=== PATIENT | male | born 1945 | race Caucasian/White ===

== ENCOUNTER 2017-09-11 18:46 | Inpatient (IN) ==
[2017-09-11] MEDS ORDERED: ALBUTEROL/IPRATROPIUM 3 ML NEB RESP TX STA (19:05)
[2017-09-11 20:08] LABS: Basophils % 0.4 % (0.0-0.8); Eosinophils # 0.2 10*3/uL (0.0-0.87); Eosinophils % 2.3 % (0.00-10.9); Hematocrit 29.7 VOL% (42.0-52.0); Hemoglobin 9.6 GM/DL (14.0-18.0); Immature Granulocytes % 0.6 %; Immature Granulocytes Absolute 0.05 #; Lymphocytes # 0.7 10*3/uL (1.4-4.0); Mean Corpuscular HGB Conc 32.3 GM/DL (32-36); Mean Corpuscular Hemoglobin 35 PG (27-34); Mean Corpuscular Volume 106.8 FL (87-102); Mean Platelet Volume 9.9 FL (9.6-12.0); Monocytes # 0.7 10*3/uL (0.11-0.8); Monocytes % 8.1 % (1.7-12.7); Neutrophils # 6.7 10*3/uL (1.4-7.4); Neutrophils % 80.6 % (38.7-73.9); Platelet Count 130 T/CUMM (130-400); Red Blood Count 2.78 MC/CUMM (3.8-5.5); Red Cell Distribution Width 15.8 % (9.3-17.3); White Blood Count 8.3 T/CUMM (4-12)
[2017-09-11 20:17] LABS: INR 1.1; PT Patient Result 11.3 SECS
[2017-09-11 20:32] LABS: Alanine Aminotransferase 25 U/L (16-61); Albumin 3.8 G/DL (3.4-5.0); Alkaline Phosphatase 98 U/L (45-117); Aspartate Amino Transferase 30 U/L (0-37); Blood Urea Nitrogen 49 MG/DL (7-18); Calcium 8.7 MG/DL (8.5-10.1); Glucose 110 MG/DL (74-106); Osmolality,Calculated 281.2 MOS/KG (273-304); Potassium 3.4 MMOL/L (3.5-5.1); Sodium 134 MMOL/L (136-145); Total Protein 7.5 G/DL (6.4-8.3)
[2017-09-11 20:33] LABS: Troponin I Only 0.079 NG/ML (0.00-0.045)
[2017-09-11] MEDS ORDERED: ONDANSETRON 4 MG/2 ML VIAL IV PRN (22:35)
[2017-09-11] MEDS ORDERED: ALBUTEROL/IPRATROPIUM 3 ML NEB RESP TX PRN (22:35)
[2017-09-11] MEDS: ATORVASTATIN 20 MG TABLET PO SCH (23:29)
[2017-09-11] MEDS: SOTALOL 80 MG TABLET PO SCH (23:29)
[2017-09-12 04:46] LABS: Troponin I Only 0.128 NG/ML (0.00-0.045)
[2017-09-12] MEDS: POTASSIUM CHLORIDE 10 MEQ TABLET PO SCH (08:47)
[2017-09-12] MEDS: GABAPENTIN 300 MG CAPSULE PO SCH ×3 (08:48→21:20)
[2017-09-12] MEDS: PANTOPRAZOLE 40 MG TABLET PO SCH (08:48)
[2017-09-12] MEDS: FUROSEMIDE 40 MG TABLET PO SCH (08:48)
[2017-09-12] MEDS: SOTALOL 80 MG TABLET PO SCH ×2 (08:50→21:19)
[2017-09-12] MEDS: ATORVASTATIN 20 MG TABLET PO SCH (21:20)
[2017-09-13 05:15] LABS: Basophils % 0.4 % (0.0-0.8); Eosinophils # 0.4 10*3/uL (0.0-0.87); Eosinophils % 5.2 % (0.00-10.9); Hematocrit 26.6 VOL% (42.0-52.0); Hemoglobin 8.7 GM/DL (14.0-18.0); Immature Granulocytes % 0.3 %; Immature Granulocytes Absolute 0.02 #; Lymphocytes # 0.8 10*3/uL (1.4-4.0); Mean Corpuscular HGB Conc 32.7 GM/DL (32-36); Mean Corpuscular Hemoglobin 34 PG (27-34); Mean Corpuscular Volume 104.7 FL (87-102); Mean Platelet Volume 9.3 FL (9.6-12.0); Monocytes # 0.8 10*3/uL (0.11-0.8); Monocytes % 11.7 % (1.7-12.7); Neutrophils # 4.9 10*3/uL (1.4-7.4); Neutrophils % 70.4 % (38.7-73.9); Platelet Count 128 T/CUMM (130-400); Red Blood Count 2.54 MC/CUMM (3.8-5.5); Red Cell Distribution Width 15.8 % (9.3-17.3)
[2017-09-13 05:50] LABS: Calcium 8.7 MG/DL (8.5-10.1); Osmolality,Calculated 276.4 MOS/KG (273-304); Potassium 3.2 MMOL/L (3.5-5.1)
[2017-09-13] MEDS: SOTALOL 80 MG TABLET PO SCH (10:33)
[2017-09-13] MEDS: FUROSEMIDE 40 MG TABLET PO SCH (10:33)
[2017-09-13] MEDS: POTASSIUM CHLORIDE 10 MEQ TABLET PO SCH (10:33)
[2017-09-13] MEDS: metOLazone 2.5 MG TABLET PO SCH (10:34)
[2017-09-13] MEDS: PANTOPRAZOLE 40 MG TABLET PO SCH (10:34)
[2017-09-13] MEDS: GABAPENTIN 300 MG CAPSULE PO SCH ×3 (10:34→21:33)
[2017-09-13] MEDS: POTASSIUM CHLORIDE 20 MEQ TABLET PO PRN ×4 (10:38→16:44)
[2017-09-13] MEDS ORDERED: FUROSEMIDE 40 MG/4 ML VIAL IV ONE (16:15)
[2017-09-13] MEDS: ASPIRIN EC 81 MG TABLET PO SCH (16:45)
[2017-09-13 18:18] LABS: Apearance,Urine CLEAR (Clear); Bilirubin,Urine Negative (Negative); Blood, Urine Negative (Negative); Glucose,Urine (UA) Negative (Negative); Ketones,Urine Negative (Negative); Nitrite,Urine Negative (Negative); Protein,Urine Negative; Urine Color Yellow (Yellow); Urine Specific Gravity 1.006 (1.001-1.035); Urine Urobilinogen < 2.0 EU/DL (0.2-1.0); WBC,Urine <1 /HPF (0-6)
[2017-09-13] MEDS: ATORVASTATIN 20 MG TABLET PO SCH (21:32)
[2017-09-14 04:09] LABS: Basophils % 0.6 % (0.0-0.8); Eosinophils # 0.3 10*3/uL (0.0-0.87); Eosinophils % 4.6 % (0.00-10.9); Hematocrit 26.8 VOL% (42.0-52.0); Immature Granulocytes % 0.2 %; Immature Granulocytes Absolute 0.01 #; Lymphocytes # 0.7 10*3/uL (1.4-4.0); Lymphocytes % 11.3 % (21.2-54.2); Mean Corpuscular HGB Conc 33.6 GM/DL (32-36); Mean Corpuscular Hemoglobin 35 PG (27-34); Mean Corpuscular Volume 103.9 FL (87-102); Mean Platelet Volume 9.3 FL (9.6-12.0); Monocytes # 0.8 10*3/uL (0.11-0.8); Monocytes % 11.6 % (1.7-12.7); Neutrophils # 4.7 10*3/uL (1.4-7.4); Neutrophils % 71.7 % (38.7-73.9); Platelet Count 133 T/CUMM (130-400); Red Blood Count 2.58 MC/CUMM (3.8-5.5); Red Cell Distribution Width 15.6 % (9.3-17.3); White Blood Count 6.6 T/CUMM (4-12)
[2017-09-14 04:45] LABS: Calcium 8.8 MG/DL (8.5-10.1); Magnesium 2.3 MG/DL (1.8-2.4); Osmolality,Calculated 280.1 MOS/KG (273-304); Potassium 3.5 MMOL/L (3.5-5.1); Risk Ratio 3.38; VLDL CHOLESTEROL 20.4 MG/DL
[2017-09-14] MEDS: NEBIVOLOL 5 MG TABLET PO SCH (09:46)
[2017-09-14] MEDS: GABAPENTIN 300 MG CAPSULE PO SCH ×3 (09:46→21:27)
[2017-09-14] MEDS: FUROSEMIDE 40 MG TABLET PO SCH (09:46)
[2017-09-14] MEDS: PANTOPRAZOLE 40 MG TABLET PO SCH (09:47)
[2017-09-14] MEDS: POTASSIUM CHLORIDE 20 MEQ TABLET PO PRN ×2 (09:47→11:54)
[2017-09-14] MEDS: POTASSIUM CHLORIDE 10 MEQ TABLET PO SCH (09:47)
[2017-09-14] MEDS: metOLazone 2.5 MG TABLET PO SCH (09:47)
[2017-09-14] MEDS: ASPIRIN EC 81 MG TABLET PO SCH (09:47)
[2017-09-14] MEDS ORDERED: BISACODYL 5 MG TABLET PO ONE (11:34)
[2017-09-14] MEDS: FUROSEMIDE 40 MG/4 ML VIAL IV SCH (16:08)
[2017-09-14] MEDS: ATORVASTATIN 20 MG TABLET PO SCH (21:26)
[2017-09-15 05:02] LABS: Basophils % 0.5 % (0.0-0.8); Eosinophils # 0.3 10*3/uL (0.0-0.87); Eosinophils % 5.5 % (0.00-10.9); Hematocrit 26.5 VOL% (42.0-52.0); Hemoglobin 8.7 GM/DL (14.0-18.0); Immature Granulocytes % 0.7 %; Immature Granulocytes Absolute 0.04 #; Lymphocytes # 0.8 10*3/uL (1.4-4.0); Lymphocytes % 12.8 % (21.2-54.2); Mean Corpuscular HGB Conc 32.8 GM/DL (32-36); Mean Corpuscular Hemoglobin 34 PG (27-34); Mean Corpuscular Volume 103.5 FL (87-102); Mean Platelet Volume 9.7 FL (9.6-12.0); Monocytes # 0.7 10*3/uL (0.11-0.8); Monocytes % 11.9 % (1.7-12.7); Neutrophils # 4.2 10*3/uL (1.4-7.4); Neutrophils % 68.6 % (38.7-73.9); Platelet Count 128 T/CUMM (130-400); Red Blood Count 2.56 MC/CUMM (3.8-5.5); Red Cell Distribution Width 15.5 % (9.3-17.3); White Blood Count 6.2 T/CUMM (4-12)
[2017-09-15 05:31] LABS: Calcium 8.7 MG/DL (8.5-10.1); Magnesium 2.1 MG/DL (1.8-2.4); Potassium 3.5 MMOL/L (3.5-5.1)
[2017-09-15] MEDS: metOLazone 2.5 MG TABLET PO SCH (08:35)
[2017-09-15] MEDS: GABAPENTIN 300 MG CAPSULE PO SCH ×3 (08:35→21:51)
[2017-09-15] MEDS: FUROSEMIDE 40 MG/4 ML VIAL IV SCH (08:36)
[2017-09-15] MEDS: POTASSIUM CHLORIDE 10 MEQ TABLET PO SCH (08:36)
[2017-09-15] MEDS: ASPIRIN EC 81 MG TABLET PO SCH (08:36)
[2017-09-15] MEDS: PANTOPRAZOLE 40 MG TABLET PO SCH (08:36)
[2017-09-15] MEDS: NEBIVOLOL 5 MG TABLET PO SCH (08:36)
[2017-09-15] MEDS: ATORVASTATIN 20 MG TABLET PO SCH (21:51)
[2017-09-16 05:48] LABS: Basophils % 0.5 % (0.0-0.8); Eosinophils # 0.4 10*3/uL (0.0-0.87); Eosinophils % 5.4 % (0.00-10.9); Hematocrit 27.4 VOL% (42.0-52.0); Hemoglobin 9.1 GM/DL (14.0-18.0); Immature Granulocytes % 0.5 %; Immature Granulocytes Absolute 0.03 #; Lymphocytes # 0.8 10*3/uL (1.4-4.0); Lymphocytes % 12.6 % (21.2-54.2); Mean Corpuscular HGB Conc 33.2 GM/DL (32-36); Mean Corpuscular Hemoglobin 35 PG (27-34); Mean Corpuscular Volume 103.8 FL (87-102); Mean Platelet Volume 9.7 FL (9.6-12.0); Monocytes # 0.8 10*3/uL (0.11-0.8); Monocytes % 11.9 % (1.7-12.7); Neutrophils # 4.6 10*3/uL (1.4-7.4); Neutrophils % 69.1 % (38.7-73.9); Platelet Count 134 T/CUMM (130-400); Red Blood Count 2.64 MC/CUMM (3.8-5.5); Red Cell Distribution Width 15.2 % (9.3-17.3); White Blood Count 6.7 T/CUMM (4-12)
[2017-09-16 06:18] LABS: Calcium 8.6 MG/DL (8.5-10.1); Magnesium 2.2 MG/DL (1.8-2.4); Potassium 3.6 MMOL/L (3.5-5.1)
[2017-09-16 06:19] LABS: Potassium 3.6 MMOL/L (3.5-5.1)
[2017-09-16] MEDS: NEBIVOLOL 5 MG TABLET PO SCH (08:29)
[2017-09-16] MEDS: PANTOPRAZOLE 40 MG TABLET PO SCH (08:29)
[2017-09-16] MEDS: POTASSIUM CHLORIDE 10 MEQ TABLET PO SCH (08:29)
[2017-09-16] MEDS: FUROSEMIDE 40 MG/4 ML VIAL IV SCH (08:29)
[2017-09-16] MEDS: ASPIRIN EC 81 MG TABLET PO SCH (08:29)
[2017-09-16] MEDS: GABAPENTIN 300 MG CAPSULE PO SCH (08:29)
[2017-09-16 12:25] VITALS: BP 121/72
== END 2017-09-16 14:30 | disposition home or self-care (01) | DRG 291 ==
LOC: EDBD → EDUNIT# → N.ED 18:46 → N.EDINP 20:55 → N.TELES 21:56
PROVIDERS: ADMIT Family Medicine; ATTEND Family Medicine

== ENCOUNTER 2017-10-22 15:46 | Inpatient (IN) ==
[2017-10-22 17:29] LABS: Basophils % 0.3 % (0.0-0.8); Eosinophils # 0.3 10*3/uL (0.0-0.87); Eosinophils % 3.8 % (0.00-10.9); Hematocrit 30.8 VOL% (42.0-52.0); Hemoglobin 9.9 GM/DL (14.0-18.0); Immature Granulocytes % 0.4 %; Immature Granulocytes Absolute 0.03 #; Lymphocytes # 0.7 10*3/uL (1.4-4.0); Lymphocytes % 9.2 % (21.2-54.2); Mean Corpuscular HGB Conc 32.1 GM/DL (32-36); Mean Corpuscular Hemoglobin 35 PG (27-34); Mean Corpuscular Volume 108.8 FL (87-102); Mean Platelet Volume 10.3 FL (9.6-12.0); Monocytes # 0.9 10*3/uL (0.11-0.8); Monocytes % 10.8 % (1.7-12.7); Neutrophils % 75.5 % (38.7-73.9); Platelet Count 108 T/CUMM (130-400); Red Blood Count 2.83 MC/CUMM (3.8-5.5); Red Cell Distribution Width 17.2 % (9.3-17.3); White Blood Count 7.9 T/CUMM (4-12)
[2017-10-22 17:39] LABS: INR 1.1; PT Patient Result 11.4 SECS
[2017-10-22 17:59] LABS: Apearance,Urine Slightly Hazy (Clear); Bacteria,Urine Occasional /HPF (Few); Bilirubin,Urine Negative (Negative); Blood, Urine Negative (Negative); Glucose,Urine (UA) Negative (Negative); Hyaline Casts,Urine 4 /LPF (0-3); Ketones,Urine Negative (Negative); Mucus,Urine Occasional /LPF (Occasional); Nitrite,Urine Negative (Negative); Protein,Urine Negative; RBC,Urine <1 /HPF (0-4); Squamous Epithelial Cell,Urine Occasional /HPF (0-10); Urine Color Yellow (Yellow); Urine Specific Gravity 1.013 (1.001-1.035); Urine Urobilinogen < 2.0 EU/DL (0.2-1.0); WBC,Urine 10 /HPF (0-6)
[2017-10-22] MEDS ORDERED: ALBUTEROL/IPRATROPIUM 3 ML NEB RESP TX STA (20:51)
[2017-10-22] MEDS ORDERED: FUROSEMIDE 100 MG/10 ML VIAL IV STA (20:51)
[2017-10-22] MEDS ORDERED: cefTRIAXone 1,000 MG in SODIUM CHLORIDE 0.9% 100 ML IV STA (21:17)
[2017-10-22] MEDS ORDERED: FUROSEMIDE 40 MG/4 ML VIAL ONE (21:51)
[2017-10-22] MEDS ORDERED: cefTRIAXone 1,000 MG VIAL ONE (21:51)
[2017-10-22 22:29] LABS: INR 1.1; PT Patient Result 11.3 SECS
[2017-10-22 22:41] LABS: Albumin 3.8 G/DL (3.4-5.0); Bilirubin,Total 1.1 MG/DL (0.2-1.0); Calcium 8.6 MG/DL (8.5-10.1); Magnesium 2.6 MG/DL (1.8-2.4); Osmolality,Calculated 296.1 MOS/KG (273-304); Potassium 4.1 MMOL/L (3.5-5.1); Total Protein 7.9 G/DL (6.4-8.3)
[2017-10-22 22:42] LABS: Lactic Acid 2.3 MMOL/L (0.4-2.0)
[2017-10-22 22:43] LABS: Troponin I Only 0.064 NG/ML (0.00-0.045)
[2017-10-23 03:00] LABS: Apearance,Urine CLEAR (Clear); Bilirubin,Urine Negative (Negative); Blood, Urine Negative (Negative); Glucose,Urine (UA) Negative (Negative); Hyaline Casts,Urine 1 /LPF (0-3); Ketones,Urine Negative (Negative); Nitrite,Urine Negative (Negative); Protein,Urine Negative; Urine Color Yellow (Yellow); Urine Specific Gravity 1.005 (1.001-1.035); Urine Urobilinogen < 2.0 EU/DL (0.2-1.0); WBC,Urine <1 /HPF (0-6)
[2017-10-23] MEDS ORDERED: ACETAMINOPHEN 325 MG TABLET PO PRN (03:09)
[2017-10-23] MEDS ORDERED: DEXTROSE 50% 25 GM/50 ML VIAL IV PRN (03:09)
[2017-10-23] MEDS ORDERED: GLUCAGON 1 MG VIAL IM PRN (03:09)
[2017-10-23] MEDS ORDERED: MORPHINE 2 MG/1 ML SYRINGE IV PRN (03:09)
[2017-10-23] MEDS ORDERED: ONDANSETRON 4 MG/2 ML VIAL IV PRN (03:09)
[2017-10-23] MEDS ORDERED: ALBUTEROL/IPRATROPIUM 3 ML NEB RESP TX PRN (03:09)
[2017-10-23] MEDS: SODIUM CHLORIDE 0.9% 1,000 ML IV SCH (04:24)
[2017-10-23 04:53] LABS: Basophils % 0.4 % (0.0-0.8); Eosinophils # 0.3 10*3/uL (0.0-0.87); Eosinophils % 3.9 % (0.00-10.9); Hemoglobin 9.2 GM/DL (14.0-18.0); Immature Granulocytes % 0.2 %; Immature Granulocytes Absolute 0.02 #; Lymphocytes # 0.7 10*3/uL (1.4-4.0); Lymphocytes % 9.2 % (21.2-54.2); Mean Corpuscular HGB Conc 31.7 GM/DL (32-36); Mean Corpuscular Hemoglobin 34 PG (27-34); Mean Corpuscular Volume 107.8 FL (87-102); Mean Platelet Volume 9.6 FL (9.6-12.0); Monocytes # 0.8 10*3/uL (0.11-0.8); Monocytes % 10.1 % (1.7-12.7); Neutrophils # 6.1 10*3/uL (1.4-7.4); Neutrophils % 76.2 % (38.7-73.9); Platelet Count 121 T/CUMM (130-400); Red Blood Count 2.69 MC/CUMM (3.8-5.5); Red Cell Distribution Width 17.1 % (9.3-17.3)
[2017-10-23 05:24] LABS: Magnesium 2.4 MG/DL (1.8-2.4); Risk Ratio 3.17; VLDL CHOLESTEROL 19.4 MG/DL
[2017-10-23 05:26] LABS: Lactic Acid 1.3 MMOL/L (0.4-2.0)
[2017-10-23 05:27] LABS: Albumin 3.5 G/DL (3.4-5.0); Calcium 8.8 MG/DL (8.5-10.1); Osmolality,Calculated 295.1 MOS/KG (273-304); Potassium 4.1 MMOL/L (3.5-5.1); Total Protein 7.3 G/DL (6.4-8.3)
[2017-10-23 05:30] LABS: Troponin I Only 0.051 NG/ML (0.00-0.045)
[2017-10-23] MEDS ORDERED: NITROGLYCERIN SL 0.4 MG TABLET SL PRN (06:21)
[2017-10-23] MEDS ORDERED: traMADol 50 MG TABLET PO PRN (06:21)
[2017-10-23] MEDS ORDERED: FUROSEMIDE 40 MG/4 ML VIAL IV SCH ×3 (08:00→14:00)
[2017-10-23] MEDS: INSULIN REGULAR 100 UNIT/ML SUBCUT SCH ×4 (08:38→20:17)
[2017-10-23] MEDS ORDERED: FUROSEMIDE 40 MG TABLET PO SCH (09:00)
[2017-10-23] MEDS: MULTIVITAMIN (CENTRUM) TABLET PO SCH (09:57)
[2017-10-23] MEDS: CYANOCOBALAMIN 500 MCG TABLET PO SCH (09:58)
[2017-10-23] MEDS: MULTIVITAMIN (BEROCCA) TABLET PO SCH (09:58)
[2017-10-23] MEDS: FOLIC ACID 1 MG TABLET PO SCH (09:58)
[2017-10-23] MEDS: DOCUSATE SODIUM 100 MG CAPSULE PO SCH ×2 (09:59→10:26)
[2017-10-23] MEDS: ASCORBIC ACID 500 MG TABLET PO SCH ×2 (10:00→20:36)
[2017-10-23] MEDS: GABAPENTIN 300 MG CAPSULE PO SCH ×3 (10:00→20:24)
[2017-10-23] MEDS: NEBIVOLOL 5 MG TABLET PO SCH (10:01)
[2017-10-23] MEDS: POTASSIUM CHLORIDE 10 MEQ TABLET PO SCH ×2 (10:02→20:24)
[2017-10-23] MEDS: ASPIRIN EC 81 MG TABLET PO SCH (10:02)
[2017-10-23] MEDS: MAGNESIUM GLUCONATE 500 MG TABLET PO SCH (10:03)
[2017-10-23] MEDS: PANTOPRAZOLE 40 MG VIAL IV SCH (10:12)
[2017-10-23] MEDS: FUROSEMIDE 40 MG/4 ML VIAL IV SCH ×2 (10:18→17:22)
[2017-10-23 15:07] LABS: Apearance,Urine CLEAR (Clear); Bilirubin,Urine Negative (Negative); Blood, Urine Negative (Negative); Glucose,Urine (UA) Negative (Negative); Hyaline Casts,Urine 5 /LPF (0-3); Ketones,Urine Negative (Negative); Mucus,Urine Occasional /LPF (Occasional); Nitrite,Urine Negative (Negative); Protein,Urine Negative; RBC,Urine <1 /HPF (0-4); Urine Color Yellow (Yellow); Urine Specific Gravity 1.011 (1.001-1.035); Urine Urobilinogen < 2.0 EU/DL (0.2-1.0)
[2017-10-23 15:34] LABS: Creatinine,Urine Random 97 MG/DL; Total Protein,Urine Random 15 MG/DL; Urea Nitrogen, Urine Random 646 MG/DL
[2017-10-23] MEDS: AMITRIPTYLINE 25 MG TABLET PO SCH (20:24)
[2017-10-23] MEDS: ATORVASTATIN 20 MG TABLET PO SCH (20:24)
[2017-10-23] MEDS: MELATONIN 3 MG TABLET PO SCH (20:25)
[2017-10-23] MEDS: cefTRIAXone 1,000 MG in SYRINGE 1 EACH IV SCH (22:44)
[2017-10-24] MEDS: FUROSEMIDE 40 MG/4 ML VIAL IV SCH ×2 (01:46→14:30)
[2017-10-24] MEDS: SODIUM CHLORIDE 0.9% 1,000 ML IV SCH (06:23)
[2017-10-24] MEDS: INSULIN REGULAR 100 UNIT/ML SUBCUT SCH ×4 (08:47→21:05)
[2017-10-24] MEDS: PANTOPRAZOLE 40 MG VIAL IV SCH (09:35)
[2017-10-24] MEDS: MULTIVITAMIN (CENTRUM) TABLET PO SCH (09:35)
[2017-10-24] MEDS: MAGNESIUM GLUCONATE 500 MG TABLET PO SCH (09:35)
[2017-10-24] MEDS: DOCUSATE SODIUM 100 MG CAPSULE PO SCH ×2 (09:36→09:38)
[2017-10-24] MEDS: ASPIRIN EC 81 MG TABLET PO SCH (09:36)
[2017-10-24] MEDS: MULTIVITAMIN (BEROCCA) TABLET PO SCH (09:36)
[2017-10-24] MEDS: NEBIVOLOL 5 MG TABLET PO SCH (09:36)
[2017-10-24] MEDS: FOLIC ACID 1 MG TABLET PO SCH (09:38)
[2017-10-24] MEDS: POTASSIUM CHLORIDE 10 MEQ TABLET PO SCH ×2 (09:38→21:03)
[2017-10-24] MEDS: ASCORBIC ACID 500 MG TABLET PO SCH ×2 (09:44→21:04)
[2017-10-24] MEDS: CYANOCOBALAMIN 500 MCG TABLET PO SCH (09:45)
[2017-10-24] MEDS ORDERED: FUROSEMIDE 40 MG/4 ML VIAL IV SCH (18:00)
[2017-10-24] MEDS ORDERED: MAGNESIUM HYDROXIDE SUSP 30 ML UDCUP PO PRN (20:10)
[2017-10-24] MEDS: MELATONIN 3 MG TABLET PO SCH (21:04)
[2017-10-24] MEDS: AMITRIPTYLINE 25 MG TABLET PO SCH (21:04)
[2017-10-24] MEDS: GABAPENTIN 300 MG CAPSULE PO SCH (21:04)
[2017-10-24] MEDS: ATORVASTATIN 20 MG TABLET PO SCH (21:04)
[2017-10-24] MEDS: cefTRIAXone 1,000 MG in SYRINGE 1 EACH IV SCH (21:10)
[2017-10-25] MEDS: FUROSEMIDE 40 MG/4 ML VIAL IV SCH ×2 (01:57→13:55)
[2017-10-25 06:15] LABS: Basophils % 0.3 % (0.0-0.8); Eosinophils # 0.4 10*3/uL (0.0-0.87); Eosinophils % 5.6 % (0.00-10.9); Hematocrit 27.9 VOL% (42.0-52.0); Hemoglobin 8.8 GM/DL (14.0-18.0); Immature Granulocytes % 0.3 %; Immature Granulocytes Absolute 0.02 #; Lymphocytes # 0.7 10*3/uL (1.4-4.0); Lymphocytes % 10.2 % (21.2-54.2); Mean Corpuscular HGB Conc 31.5 GM/DL (32-36); Mean Corpuscular Hemoglobin 34 PG (27-34); Mean Corpuscular Volume 108.1 FL (87-102); Mean Platelet Volume 9.5 FL (9.6-12.0); Monocytes # 0.7 10*3/uL (0.11-0.8); Neutrophils # 4.9 10*3/uL (1.4-7.4); Neutrophils % 72.6 % (38.7-73.9); Platelet Count 119 T/CUMM (130-400); Red Blood Count 2.58 MC/CUMM (3.8-5.5); Red Cell Distribution Width 16.8 % (9.3-17.3); White Blood Count 6.7 T/CUMM (4-12)
[2017-10-25 06:54] LABS: Calcium 8.8 MG/DL (8.5-10.1); Magnesium 2.4 MG/DL (1.8-2.4); Osmolality,Calculated 293.1 MOS/KG (273-304); Potassium 3.9 MMOL/L (3.5-5.1)
[2017-10-25] MEDS: PANTOPRAZOLE 40 MG VIAL IV SCH (08:39)
[2017-10-25] MEDS: CYANOCOBALAMIN 500 MCG TABLET PO SCH (08:40)
[2017-10-25] MEDS: MULTIVITAMIN (CENTRUM) TABLET PO SCH (08:40)
[2017-10-25] MEDS: MAGNESIUM GLUCONATE 500 MG TABLET PO SCH (08:40)
[2017-10-25] MEDS: DOCUSATE SODIUM 100 MG CAPSULE PO SCH (08:41)
[2017-10-25] MEDS: POTASSIUM CHLORIDE 10 MEQ TABLET PO SCH ×2 (08:41→20:06)
[2017-10-25] MEDS: FOLIC ACID 1 MG TABLET PO SCH (08:41)
[2017-10-25] MEDS: MULTIVITAMIN (BEROCCA) TABLET PO SCH (08:41)
[2017-10-25] MEDS: ASCORBIC ACID 500 MG TABLET PO SCH ×2 (08:41→20:06)
[2017-10-25] MEDS: NEBIVOLOL 5 MG TABLET PO SCH (08:41)
[2017-10-25] MEDS: ASPIRIN EC 81 MG TABLET PO SCH (08:41)
[2017-10-25] MEDS: INSULIN REGULAR 100 UNIT/ML SUBCUT SCH ×4 (08:57→20:07)
[2017-10-25] MEDS: OXYMETAZOLINE 0.05% NASAL SPRAY 15 ML BOTTLE BOTH NARES SCH ×2 (11:52→20:05)
[2017-10-25] MEDS: GABAPENTIN 300 MG CAPSULE PO SCH (20:05)
[2017-10-25] MEDS: AMITRIPTYLINE 25 MG TABLET PO SCH (20:06)
[2017-10-25] MEDS: ATORVASTATIN 20 MG TABLET PO SCH (20:06)
[2017-10-25] MEDS: MELATONIN 3 MG TABLET PO SCH (20:06)
[2017-10-25] MEDS: cefTRIAXone 1,000 MG in SYRINGE 1 EACH IV SCH (21:20)
[2017-10-26] MEDS: FUROSEMIDE 40 MG/4 ML VIAL IV SCH ×2 (02:03→15:00)
[2017-10-26 04:27] LABS: Basophils % 0.5 % (0.0-0.8); Eosinophils # 0.4 10*3/uL (0.0-0.87); Eosinophils % 5.8 % (0.00-10.9); Hematocrit 27.5 VOL% (42.0-52.0); Hemoglobin 8.6 GM/DL (14.0-18.0); Immature Granulocytes % 0.6 %; Immature Granulocytes Absolute 0.04 #; Lymphocytes # 0.7 10*3/uL (1.4-4.0); Mean Corpuscular HGB Conc 31.3 GM/DL (32-36); Mean Corpuscular Hemoglobin 34 PG (27-34); Mean Corpuscular Volume 107.8 FL (87-102); Mean Platelet Volume 9.8 FL (9.6-12.0); Monocytes # 0.7 10*3/uL (0.11-0.8); Monocytes % 10.7 % (1.7-12.7); Neutrophils # 4.5 10*3/uL (1.4-7.4); Neutrophils % 71.4 % (38.7-73.9); Platelet Count 118 T/CUMM (130-400); Red Blood Count 2.55 MC/CUMM (3.8-5.5); Red Cell Distribution Width 16.4 % (9.3-17.3); White Blood Count 6.4 T/CUMM (4-12)
[2017-10-26 04:49] LABS: Calcium 8.9 MG/DL (8.5-10.1); Magnesium 2.2 MG/DL (1.8-2.4); Osmolality,Calculated 289.4 MOS/KG (273-304); Potassium 3.7 MMOL/L (3.5-5.1)
[2017-10-26] MEDS: INSULIN REGULAR 100 UNIT/ML SUBCUT SCH ×4 (07:36→23:16)
[2017-10-26] MEDS: ASCORBIC ACID 500 MG TABLET PO SCH ×2 (09:19→21:44)
[2017-10-26] MEDS: NEBIVOLOL 5 MG TABLET PO SCH (09:19)
[2017-10-26] MEDS: PANTOPRAZOLE 40 MG VIAL IV SCH (09:19)
[2017-10-26] MEDS: MULTIVITAMIN (BEROCCA) TABLET PO SCH (09:20)
[2017-10-26] MEDS: DOCUSATE SODIUM 100 MG CAPSULE PO SCH (09:20)
[2017-10-26] MEDS: POTASSIUM CHLORIDE 10 MEQ TABLET PO SCH ×2 (09:20→21:43)
[2017-10-26] MEDS: MULTIVITAMIN (CENTRUM) TABLET PO SCH (09:20)
[2017-10-26] MEDS: CYANOCOBALAMIN 500 MCG TABLET PO SCH (09:20)
[2017-10-26] MEDS: ASPIRIN EC 81 MG TABLET PO SCH (09:21)
[2017-10-26] MEDS: OXYMETAZOLINE 0.05% NASAL SPRAY 15 ML BOTTLE BOTH NARES SCH ×2 (09:21→23:16)
[2017-10-26] MEDS: MAGNESIUM GLUCONATE 500 MG TABLET PO SCH (09:21)
[2017-10-26] MEDS: FOLIC ACID 1 MG TABLET PO SCH (09:21)
[2017-10-26] MEDS ORDERED: MORPHINE 10 MG/1 ML VIAL IV PRN (14:30)
[2017-10-26] MEDS ORDERED: SODIUM CHLORIDE 0.65% NASAL SPRAY 45 ML BOTTLE BOTH NARES PRN (15:57)
[2017-10-26] MEDS: AMITRIPTYLINE 25 MG TABLET PO SCH (21:43)
[2017-10-26] MEDS: MELATONIN 3 MG TABLET PO SCH (21:43)
[2017-10-26] MEDS: ATORVASTATIN 20 MG TABLET PO SCH (21:43)
[2017-10-26] MEDS: GABAPENTIN 300 MG CAPSULE PO SCH (21:44)
[2017-10-26] MEDS: cefTRIAXone 1,000 MG in SYRINGE 1 EACH IV SCH (21:44)
[2017-10-27] MEDS: FUROSEMIDE 40 MG/4 ML VIAL IV SCH (03:10)
[2017-10-27 06:24] LABS: Basophils % 0.3 % (0.0-0.8); Eosinophils # 0.4 10*3/uL (0.0-0.87); Eosinophils % 5.5 % (0.00-10.9); Hematocrit 27.1 VOL% (42.0-52.0); Hemoglobin 8.7 GM/DL (14.0-18.0); Immature Granulocytes % 0.3 %; Immature Granulocytes Absolute 0.02 #; Lymphocytes # 0.7 10*3/uL (1.4-4.0); Lymphocytes % 11.1 % (21.2-54.2); Mean Corpuscular HGB Conc 32.1 GM/DL (32-36); Mean Corpuscular Hemoglobin 34 PG (27-34); Mean Corpuscular Volume 105.4 FL (87-102); Mean Platelet Volume 9.6 FL (9.6-12.0); Monocytes # 0.8 10*3/uL (0.11-0.8); Monocytes % 12.5 % (1.7-12.7); Neutrophils # 4.4 10*3/uL (1.4-7.4); Neutrophils % 70.3 % (38.7-73.9); Platelet Count 126 T/CUMM (130-400); Red Blood Count 2.57 MC/CUMM (3.8-5.5); Red Cell Distribution Width 16.2 % (9.3-17.3); White Blood Count 6.3 T/CUMM (4-12)
[2017-10-27 06:49] LABS: Calcium 8.4 MG/DL (8.5-10.1); Magnesium 2.4 MG/DL (1.8-2.4); Osmolality,Calculated 289.3 MOS/KG (273-304); Potassium 3.7 MMOL/L (3.5-5.1)
[2017-10-27 06:51] LABS: Band Neutrophils 1 % (0-10); Eosinophils 10 % (0-10); Hypochromasia 1+; Lymphocytes 8 % (20-55); Macrocytosis 1+; Platelet Estimate Adequate; Segmented Neutrophils 73 % (50-85); Total Cells Counted 100
[2017-10-27] MEDS ORDERED: FUROSEMIDE 40 MG/4 ML VIAL IV SCH ×2 (08:34→14:00)
[2017-10-27] MEDS: PANTOPRAZOLE 40 MG VIAL IV SCH (09:43)
[2017-10-27] MEDS: ASPIRIN EC 81 MG TABLET PO SCH (09:44)
[2017-10-27] MEDS: POTASSIUM CHLORIDE 10 MEQ TABLET PO SCH ×2 (09:44→21:17)
[2017-10-27] MEDS: CYANOCOBALAMIN 500 MCG TABLET PO SCH (09:44)
[2017-10-27] MEDS: OXYMETAZOLINE 0.05% NASAL SPRAY 15 ML BOTTLE BOTH NARES SCH ×2 (09:44→23:18)
[2017-10-27] MEDS: INSULIN REGULAR 100 UNIT/ML SUBCUT SCH (09:44)
[2017-10-27] MEDS: MULTIVITAMIN (BEROCCA) TABLET PO SCH (09:44)
[2017-10-27] MEDS: NEBIVOLOL 5 MG TABLET PO SCH (09:44)
[2017-10-27] MEDS: FOLIC ACID 1 MG TABLET PO SCH (09:44)
[2017-10-27] MEDS: MULTIVITAMIN (CENTRUM) TABLET PO SCH (09:44)
[2017-10-27] MEDS: DOCUSATE SODIUM 100 MG CAPSULE PO SCH (09:44)
[2017-10-27] MEDS: MAGNESIUM GLUCONATE 500 MG TABLET PO SCH (09:48)
[2017-10-27] MEDS: ASCORBIC ACID 500 MG TABLET PO SCH ×2 (10:56→21:17)
[2017-10-27] MEDS: FUROSEMIDE 80 MG TABLET PO SCH ×2 (10:56→16:28)
[2017-10-27] MEDS: MELATONIN 3 MG TABLET PO SCH (21:17)
[2017-10-27] MEDS: ATORVASTATIN 20 MG TABLET PO SCH (21:17)
[2017-10-27] MEDS: GABAPENTIN 300 MG CAPSULE PO SCH (21:17)
[2017-10-27] MEDS: AMITRIPTYLINE 25 MG TABLET PO SCH (21:17)
[2017-10-27] MEDS: cefTRIAXone 1,000 MG in SYRINGE 1 EACH IV SCH (23:14)
[2017-10-28] MEDS: PANTOPRAZOLE 40 MG VIAL IV SCH (09:06)
[2017-10-28] MEDS: CYANOCOBALAMIN 500 MCG TABLET PO SCH (09:06)
[2017-10-28] MEDS: FOLIC ACID 1 MG TABLET PO SCH (09:07)
[2017-10-28] MEDS: MULTIVITAMIN (CENTRUM) TABLET PO SCH (09:07)
[2017-10-28] MEDS: DOCUSATE SODIUM 100 MG CAPSULE PO SCH (09:07)
[2017-10-28] MEDS: NEBIVOLOL 5 MG TABLET PO SCH (09:07)
[2017-10-28] MEDS: FUROSEMIDE 80 MG TABLET PO SCH (09:07)
[2017-10-28] MEDS: ASCORBIC ACID 500 MG TABLET PO SCH (09:07)
[2017-10-28] MEDS: POTASSIUM CHLORIDE 10 MEQ TABLET PO SCH (09:07)
[2017-10-28] MEDS: ASPIRIN EC 81 MG TABLET PO SCH (09:07)
[2017-10-28] MEDS: MULTIVITAMIN (BEROCCA) TABLET PO SCH (09:07)
[2017-10-28] MEDS: MAGNESIUM GLUCONATE 500 MG TABLET PO SCH (09:10)
[2017-10-28 11:17] VITALS: BP 112/65
== END 2017-10-28 15:20 | disposition home or self-care (01) | DRG 291 ==
LOC: N.ED 15:46 → N.EDINP 23:16 → N.ICU 10-23 03:06 → N.TELES 10-25 20:32
PROVIDERS: ADMIT Family Medicine; ATTEND Family Medicine

== ENCOUNTER 2018-03-03 19:23 | Inpatient (IN) ==
[2018-03-03] MEDS ORDERED: FUROSEMIDE 100 MG/10 ML VIAL IV STA (20:01)
[2018-03-03] MEDS ORDERED: NITROGLYCERIN 2% OINT 1 INCH/GM PACK TOP STA (20:01)
[2018-03-03 21:05] LABS: Basophils % 0.4 % (0.0-0.8); Eosinophils # 0.3 10*3/uL (0.0-0.87); Eosinophils % 2.9 % (0.00-10.9); Hematocrit 30.8 VOL% (42.0-52.0); Hemoglobin 9.4 GM/DL (14.0-18.0); Immature Granulocytes % 0.5 %; Immature Granulocytes Absolute 0.05 #; Lymphocytes # 0.9 10*3/uL (1.4-4.0); Lymphocytes % 9.4 % (21.2-54.2); Mean Corpuscular HGB Conc 30.5 GM/DL (32-36); Mean Corpuscular Hemoglobin 32 PG (27-34); Mean Corpuscular Volume 103.4 FL (87-102); Mean Platelet Volume 9.7 FL (9.6-12.0); Monocytes # 0.8 10*3/uL (0.11-0.8); Monocytes % 8.4 % (1.7-12.7); Neutrophils # 7.3 10*3/uL (1.4-7.4); Neutrophils % 78.4 % (38.7-73.9); Platelet Count 126 T/CUMM (130-400); Red Blood Count 2.98 MC/CUMM (3.8-5.5); Red Cell Distribution Width 22.1 % (9.3-17.3); White Blood Count 9.3 T/CUMM (4-12)
[2018-03-03 21:14] LABS: INR 1.1
[2018-03-03 21:24] LABS: Albumin 2.5 G/DL (3.4-5.0); Bilirubin,Total 0.8 MG/DL (0.2-1.0); Calcium 8.5 MG/DL (8.5-10.1); Osmolality,Calculated 280.2 MOS/KG (273-304); Potassium 4.5 MMOL/L (3.5-5.1)
[2018-03-03 21:33] LABS: Apearance,Urine Slightly Hazy (Clear); Bacteria,Urine Occasional /HPF (Few); Bilirubin,Urine Negative (Negative); Blood, Urine Negative (Negative); Glucose,Urine (UA) Negative (Negative); Hyaline Casts,Urine 19 /LPF (0-3); Ketones,Urine Negative (Negative); Mucus,Urine Occasional /LPF (Occasional); Nitrite,Urine Negative (Negative); Protein,Urine Negative; RBC,Urine 2 /HPF (0-4); Squamous Epithelial Cell,Urine Occasional /HPF (0-10); Urine Color Amber (Yellow); Urine Specific Gravity 1.011 (1.001-1.035); Urine Urobilinogen < 2.0 EU/DL (0.2-1.0); WBC,Urine 1 /HPF (0-6)
[2018-03-03] MEDS ORDERED: DEXTROSE 50% 25 GM/50 ML VIAL IV PRN (21:47)
[2018-03-03] MEDS ORDERED: ONDANSETRON 4 MG/2 ML VIAL IV PRN (21:47)
[2018-03-03] MEDS ORDERED: GLUCAGON 1 MG VIAL IM PRN (21:47)
[2018-03-03] MEDS ORDERED: ACETAMINOPHEN 325 MG TABLET PO PRN (21:47)
[2018-03-04] MEDS: INSULIN LISPRO 100 UNIT/ML SUBCUT SCH ×4 (08:41→20:59)
[2018-03-04] MEDS: PANTOPRAZOLE 40 MG TABLET PO SCH (09:36)
[2018-03-04] MEDS: DOCUSATE SODIUM 100 MG CAPSULE PO SCH ×2 (09:36→20:58)
[2018-03-04] MEDS ORDERED: FUROSEMIDE 40 MG/4 ML VIAL IV SCH ×2 (13:30→16:00)
[2018-03-04] MEDS ORDERED: NITROGLYCERIN SL 0.4 MG TABLET SL PRN (13:32)
[2018-03-04] MEDS: ASPIRIN EC 81 MG TABLET PO SCH (15:24)
[2018-03-04] MEDS: ALBUMIN 25% 12.5 GM in PREMIX 1 EACH IV SCH (16:49)
[2018-03-04 17:37] LABS: Lymphocytes,Pleural Fluid 68 %; Monocytes,Pleural Fluid 8 %; Neutrophils,Pleural Fluid 24 %; RBC,Pleural Fluid 1478 T/CUMM
[2018-03-04] MEDS: FUROSEMIDE 40 MG/4 ML VIAL IV SCH (17:45)
[2018-03-04] MEDS: FERROUS SULFATE 325 MG TABLET PO SCH (20:57)
[2018-03-04] MEDS: AMIODARONE 200 MG TABLET PO SCH (20:57)
[2018-03-04] MEDS: ATORVASTATIN 20 MG TABLET PO SCH (20:57)
[2018-03-04] MEDS: METOPROLOL TARTRATE 25 MG TABLET PO SCH (20:58)
[2018-03-04] MEDS: ASCORBIC ACID 500 MG TABLET PO SCH (20:58)
[2018-03-05 05:55] LABS: Basophils % 0.4 % (0.0-0.8); Eosinophils # 0.3 10*3/uL (0.0-0.87); Eosinophils % 4.4 % (0.00-10.9); Hematocrit 27.6 VOL% (42.0-52.0); Hemoglobin 8.9 GM/DL (14.0-18.0); Immature Granulocytes % 0.4 %; Immature Granulocytes Absolute 0.03 #; Lymphocytes % 14.3 % (21.2-54.2); Mean Corpuscular HGB Conc 32.2 GM/DL (32-36); Mean Corpuscular Hemoglobin 32 PG (27-34); Mean Corpuscular Volume 100.4 FL (87-102); Mean Platelet Volume 9.7 FL (9.6-12.0); Monocytes # 0.9 10*3/uL (0.11-0.8); Monocytes % 11.8 % (1.7-12.7); Neutrophils % 68.7 % (38.7-73.9); Platelet Count 123 T/CUMM (130-400); Red Blood Count 2.75 MC/CUMM (3.8-5.5); Red Cell Distribution Width 22.1 % (9.3-17.3); White Blood Count 7.3 T/CUMM (4-12)
[2018-03-05 06:24] LABS: Calcium 8.3 MG/DL (8.5-10.1); Hypochromasia 1+; Osmolality,Calculated 285.7 MOS/KG (273-304); Platelet Estimate Normal; Potassium 3.8 MMOL/L (3.5-5.1)
[2018-03-05 06:25] LABS: Ovalocytes 2+; Polychromasia Few
[2018-03-05] MEDS: INSULIN LISPRO 100 UNIT/ML SUBCUT SCH ×4 (08:36→20:55)
[2018-03-05] MEDS: ASPIRIN EC 81 MG TABLET PO SCH (08:53)
[2018-03-05] MEDS: METOPROLOL TARTRATE 25 MG TABLET PO SCH ×2 (08:53→20:54)
[2018-03-05] MEDS: FUROSEMIDE 40 MG/4 ML VIAL IV SCH (08:53)
[2018-03-05] MEDS: DOCUSATE SODIUM 100 MG CAPSULE PO SCH ×2 (08:53→20:53)
[2018-03-05] MEDS: AMIODARONE 200 MG TABLET PO SCH ×2 (08:53→20:52)
[2018-03-05] MEDS: PANTOPRAZOLE 40 MG TABLET PO SCH (08:53)
[2018-03-05] MEDS: FERROUS SULFATE 325 MG TABLET PO SCH ×2 (08:53→20:52)
[2018-03-05] MEDS: ASCORBIC ACID 500 MG TABLET PO SCH ×2 (09:40→20:52)
[2018-03-05] MEDS: MAGNESIUM OXIDE 400 MG TABLET PO SCH (12:41)
[2018-03-05] MEDS: GABAPENTIN 100 MG CAPSULE PO SCH ×2 (12:41→20:53)
[2018-03-05] MEDS: ALBUMIN 25% 12.5 GM in PREMIX 1 EACH IV SCH (16:48)
[2018-03-05] MEDS: AMITRIPTYLINE 25 MG TABLET PO SCH (20:52)
[2018-03-05] MEDS: ATORVASTATIN 20 MG TABLET PO SCH (20:52)
[2018-03-05] MEDS: CALCIUM (CARBONATE)/VITAMIN D 600 MG-400 UNIT TABLET PO SCH (20:53)
[2018-03-06 07:16] LABS: Basophils % 0.5 % (0.0-0.8); Eosinophils # 0.4 10*3/uL (0.0-0.87); Eosinophils % 4.2 % (0.00-10.9); Hematocrit 30.5 VOL% (42.0-52.0); Hemoglobin 9.5 GM/DL (14.0-18.0); Immature Granulocytes % 0.6 %; Immature Granulocytes Absolute 0.05 #; Lymphocytes # 1.3 10*3/uL (1.4-4.0); Mean Corpuscular HGB Conc 31.1 GM/DL (32-36); Mean Corpuscular Hemoglobin 32 PG (27-34); Mean Corpuscular Volume 104.1 FL (87-102); Mean Platelet Volume 10.4 FL (9.6-12.0); Monocytes % 11.4 % (1.7-12.7); Neutrophils % 68.3 % (38.7-73.9); Red Blood Count 2.93 MC/CUMM (3.8-5.5); Red Cell Distribution Width 22.1 % (9.3-17.3); White Blood Count 8.8 T/CUMM (4-12)
[2018-03-06 07:22] LABS: Platelet Count 102 T/CUMM (130-400)
[2018-03-06 07:43] LABS: Calcium 8.5 MG/DL (8.5-10.1); Osmolality,Calculated 283.7 MOS/KG (273-304); Potassium 4.2 MMOL/L (3.5-5.1)
[2018-03-06 07:46] LABS: Hypochromasia 1+; Platelet Estimate Decreased
[2018-03-06] MEDS: FUROSEMIDE 40 MG/4 ML VIAL IV SCH (09:55)
[2018-03-06] MEDS: METOPROLOL TARTRATE 25 MG TABLET PO SCH ×2 (09:56→21:36)
[2018-03-06] MEDS: ASPIRIN EC 81 MG TABLET PO SCH (09:56)
[2018-03-06] MEDS: ASCORBIC ACID 500 MG TABLET PO SCH ×2 (09:56→21:25)
[2018-03-06] MEDS: PANTOPRAZOLE 40 MG TABLET PO SCH (09:56)
[2018-03-06] MEDS: FOLIC ACID 1 MG TABLET PO SCH (09:56)
[2018-03-06] MEDS: GABAPENTIN 100 MG CAPSULE PO SCH ×2 (09:56→21:26)
[2018-03-06] MEDS: COLCHICINE 0.6 MG TABLET PO SCH (09:56)
[2018-03-06] MEDS: AMIODARONE 200 MG TABLET PO SCH ×2 (09:56→21:26)
[2018-03-06] MEDS: FERROUS SULFATE 325 MG TABLET PO SCH ×2 (09:56→21:25)
[2018-03-06] MEDS: DOCUSATE SODIUM 100 MG CAPSULE PO SCH ×2 (09:56→21:26)
[2018-03-06] MEDS: MAGNESIUM OXIDE 400 MG TABLET PO SCH (09:56)
[2018-03-06] MEDS: INSULIN LISPRO 100 UNIT/ML SUBCUT SCH ×4 (09:57→21:35)
[2018-03-06] MEDS: ALBUMIN 25% 12.5 GM in PREMIX 1 EACH IV SCH (15:25)
[2018-03-06] MEDS: ATORVASTATIN 20 MG TABLET PO SCH (21:25)
[2018-03-06] MEDS: CALCIUM (CARBONATE)/VITAMIN D 600 MG-400 UNIT TABLET PO SCH (21:26)
[2018-03-06] MEDS: AMITRIPTYLINE 25 MG TABLET PO SCH (21:26)
[2018-03-07 07:17] LABS: Basophils % 0.4 % (0.0-0.8); Eosinophils # 0.4 10*3/uL (0.0-0.87); Eosinophils % 4.1 % (0.00-10.9); Hematocrit 28.7 VOL% (42.0-52.0); Hemoglobin 9.1 GM/DL (14.0-18.0); Immature Granulocytes % 0.6 %; Immature Granulocytes Absolute 0.05 #; Lymphocytes # 1.2 10*3/uL (1.4-4.0); Lymphocytes % 14.2 % (21.2-54.2); Mean Corpuscular HGB Conc 31.7 GM/DL (32-36); Mean Corpuscular Hemoglobin 32 PG (27-34); Mean Corpuscular Volume 102.1 FL (87-102); Mean Platelet Volume 9.8 FL (9.6-12.0); Monocytes # 0.9 10*3/uL (0.11-0.8); Monocytes % 9.9 % (1.7-12.7); Neutrophils # 6.1 10*3/uL (1.4-7.4); Neutrophils % 70.8 % (38.7-73.9); Platelet Count 127 T/CUMM (130-400); Red Blood Count 2.81 MC/CUMM (3.8-5.5); Red Cell Distribution Width 22.1 % (9.3-17.3); White Blood Count 8.6 T/CUMM (4-12)
[2018-03-07 07:35] LABS: Hypochromasia 1+; Macrocytosis 1+
[2018-03-07 07:36] LABS: Ovalocytes Slight; Platelet Estimate Adequate
[2018-03-07 07:44] LABS: Calcium 8.6 MG/DL (8.5-10.1)
[2018-03-07] MEDS: AMIODARONE 200 MG TABLET PO SCH ×2 (09:35→20:51)
[2018-03-07] MEDS: FOLIC ACID 1 MG TABLET PO SCH (09:35)
[2018-03-07] MEDS: ASPIRIN EC 81 MG TABLET PO SCH (09:36)
[2018-03-07] MEDS: ASCORBIC ACID 500 MG TABLET PO SCH ×2 (09:36→20:51)
[2018-03-07] MEDS: COLCHICINE 0.6 MG TABLET PO SCH (09:36)
[2018-03-07] MEDS: PANTOPRAZOLE 40 MG TABLET PO SCH (09:36)
[2018-03-07] MEDS: DOCUSATE SODIUM 100 MG CAPSULE PO SCH ×2 (09:36→20:50)
[2018-03-07] MEDS: MAGNESIUM OXIDE 400 MG TABLET PO SCH (09:36)
[2018-03-07] MEDS: METOPROLOL TARTRATE 25 MG TABLET PO SCH ×2 (09:36→20:50)
[2018-03-07] MEDS: FUROSEMIDE 40 MG/4 ML VIAL IV SCH (09:37)
[2018-03-07] MEDS: GABAPENTIN 100 MG CAPSULE PO SCH ×2 (09:37→20:51)
[2018-03-07] MEDS: FERROUS SULFATE 325 MG TABLET PO SCH ×2 (09:37→20:51)
[2018-03-07] MEDS: INSULIN LISPRO 100 UNIT/ML SUBCUT SCH ×4 (09:39→21:00)
[2018-03-07 16:05] LABS: % Iron Saturation 17.8 % (18-50); Ferritin 249.1 ng/ml (26-388)
[2018-03-07] MEDS: ALBUMIN 25% 12.5 GM in PREMIX 1 EACH IV SCH (16:09)
[2018-03-07 17:00] LABS: Hepatitis A Ab IgM Quant 0.61 Index; Hepatitis A Ab IgM Result Negative (Negative); Hepatitis B Core IgM Quant 0.22 Index; Hepatitis B Core IgM Result Negative (Negative); Hepatitis B Surface Ag Quant < 0.10 Index; Hepatitis B Surface Ag Result Negative (Negative); Hepatitis C Virus Ab Quant 0.21 Index; Hepatitis C Virus Ab Result Negative (Negative)
[2018-03-07] MEDS: CALCIUM (CARBONATE)/VITAMIN D 600 MG-400 UNIT TABLET PO SCH (20:50)
[2018-03-07] MEDS: ATORVASTATIN 20 MG TABLET PO SCH (20:51)
[2018-03-07] MEDS: AMITRIPTYLINE 25 MG TABLET PO SCH (20:51)
[2018-03-08] MEDS: DOCUSATE SODIUM 100 MG CAPSULE PO SCH ×2 (09:05→20:48)
[2018-03-08] MEDS: MAGNESIUM OXIDE 400 MG TABLET PO SCH (09:05)
[2018-03-08] MEDS: SPIRONOLACTONE 50 MG TABLET PO SCH (09:05)
[2018-03-08] MEDS: COLCHICINE 0.6 MG TABLET PO SCH (09:05)
[2018-03-08] MEDS: FOLIC ACID 1 MG TABLET PO SCH (09:06)
[2018-03-08] MEDS: METOPROLOL TARTRATE 25 MG TABLET PO SCH ×2 (09:06→20:49)
[2018-03-08] MEDS: FERROUS SULFATE 325 MG TABLET PO SCH ×2 (09:06→20:49)
[2018-03-08] MEDS: ASCORBIC ACID 500 MG TABLET PO SCH ×2 (09:06→20:49)
[2018-03-08] MEDS: PANTOPRAZOLE 40 MG TABLET PO SCH (09:06)
[2018-03-08] MEDS: ASPIRIN EC 81 MG TABLET PO SCH (09:06)
[2018-03-08] MEDS: GABAPENTIN 100 MG CAPSULE PO SCH ×2 (09:06→20:49)
[2018-03-08] MEDS: FUROSEMIDE 40 MG/4 ML VIAL IV SCH (09:07)
[2018-03-08] MEDS: AMIODARONE 200 MG TABLET PO SCH ×2 (09:07→20:49)
[2018-03-08] MEDS: INSULIN LISPRO 100 UNIT/ML SUBCUT SCH ×4 (09:44→21:00)
[2018-03-08 11:53] LABS: Calcium 8.3 MG/DL (8.5-10.1); Potassium 3.9 MMOL/L (3.5-5.1)
[2018-03-08] MEDS: CALCIUM (CARBONATE)/VITAMIN D 600 MG-400 UNIT TABLET PO SCH (20:49)
[2018-03-08] MEDS: ATORVASTATIN 20 MG TABLET PO SCH (20:49)
[2018-03-08] MEDS: AMITRIPTYLINE 25 MG TABLET PO SCH (20:49)
[2018-03-08] MEDS: ALBUMIN 25% 12.5 GM in PREMIX 1 EACH IV SCH (20:58)
[2018-03-09 06:35] LABS: Basophils % 0.5 % (0.0-0.8); Eosinophils # 0.4 10*3/uL (0.0-0.87); Eosinophils % 4.4 % (0.00-10.9); Hematocrit 28.7 VOL% (42.0-52.0); Immature Granulocytes % 0.5 %; Immature Granulocytes Absolute 0.04 #; Lymphocytes # 1.1 10*3/uL (1.4-4.0); Lymphocytes % 13.2 % (21.2-54.2); Mean Corpuscular HGB Conc 31.4 GM/DL (32-36); Mean Corpuscular Hemoglobin 32 PG (27-34); Mean Corpuscular Volume 102.5 FL (87-102); Mean Platelet Volume 9.6 FL (9.6-12.0); Monocytes # 0.8 10*3/uL (0.11-0.8); Monocytes % 10.1 % (1.7-12.7); Neutrophils % 71.3 % (38.7-73.9); Platelet Count 136 T/CUMM (130-400); Red Cell Distribution Width 22.1 % (9.3-17.3); White Blood Count 8.3 T/CUMM (4-12)
[2018-03-09 06:54] LABS: Hypochromasia 1+; Macrocytosis 1+
[2018-03-09 06:55] LABS: Platelet Estimate Adequate
[2018-03-09 07:02] LABS: Calcium 8.2 MG/DL (8.5-10.1); Osmolality,Calculated 279.8 MOS/KG (273-304); Potassium 4.4 MMOL/L (3.5-5.1)
[2018-03-09] MEDS ORDERED: TISSUE ADHESIVE 1 EACH APPLICATOR TOP ONE (08:43)
[2018-03-09] MEDS: SPIRONOLACTONE 50 MG TABLET PO SCH (09:55)
[2018-03-09] MEDS: ASCORBIC ACID 500 MG TABLET PO SCH ×2 (09:56→20:23)
[2018-03-09] MEDS: COLCHICINE 0.6 MG TABLET PO SCH (09:56)
[2018-03-09] MEDS: MAGNESIUM OXIDE 400 MG TABLET PO SCH (09:56)
[2018-03-09] MEDS: FERROUS SULFATE 325 MG TABLET PO SCH ×2 (09:56→20:23)
[2018-03-09] MEDS: FOLIC ACID 1 MG TABLET PO SCH (09:56)
[2018-03-09] MEDS: DOCUSATE SODIUM 100 MG CAPSULE PO SCH ×2 (09:56→20:23)
[2018-03-09] MEDS: PANTOPRAZOLE 40 MG TABLET PO SCH (09:56)
[2018-03-09] MEDS: FUROSEMIDE 40 MG/4 ML VIAL IV SCH (09:57)
[2018-03-09] MEDS: GABAPENTIN 100 MG CAPSULE PO SCH ×2 (09:58→20:23)
[2018-03-09] MEDS: AMIODARONE 200 MG TABLET PO SCH ×2 (09:58→20:23)
[2018-03-09] MEDS: METOPROLOL TARTRATE 25 MG TABLET PO SCH ×2 (09:58→20:23)
[2018-03-09] MEDS: ASPIRIN EC 81 MG TABLET PO SCH (09:58)
[2018-03-09] MEDS: ALBUMIN 25% 12.5 GM in PREMIX 1 EACH IV SCH ×2 (10:23→20:23)
[2018-03-09] MEDS: INSULIN LISPRO 100 UNIT/ML SUBCUT SCH ×4 (10:28→20:23)
[2018-03-09] MEDS: CALCIUM (CARBONATE)/VITAMIN D 600 MG-400 UNIT TABLET PO SCH (20:23)
[2018-03-09] MEDS: ATORVASTATIN 20 MG TABLET PO SCH (20:23)
[2018-03-09] MEDS: AMITRIPTYLINE 25 MG TABLET PO SCH (20:23)
[2018-03-10 07:54] LABS: Calcium 8.5 MG/DL (8.5-10.1); Potassium 5.1 MMOL/L (3.5-5.1)
[2018-03-10] MEDS: INSULIN LISPRO 100 UNIT/ML SUBCUT SCH (08:29)
[2018-03-10] MEDS: SPIRONOLACTONE 50 MG TABLET PO SCH (09:50)
[2018-03-10] MEDS: FERROUS SULFATE 325 MG TABLET PO SCH (09:51)
[2018-03-10] MEDS: ASCORBIC ACID 500 MG TABLET PO SCH (09:51)
[2018-03-10] MEDS: ASPIRIN EC 81 MG TABLET PO SCH (09:51)
[2018-03-10] MEDS: DOCUSATE SODIUM 100 MG CAPSULE PO SCH (09:51)
[2018-03-10] MEDS: PANTOPRAZOLE 40 MG TABLET PO SCH (09:51)
[2018-03-10] MEDS: MAGNESIUM OXIDE 400 MG TABLET PO SCH (09:51)
[2018-03-10] MEDS: AMIODARONE 200 MG TABLET PO SCH (09:51)
[2018-03-10] MEDS: METOPROLOL TARTRATE 25 MG TABLET PO SCH (09:52)
[2018-03-10] MEDS: COLCHICINE 0.6 MG TABLET PO SCH (09:52)
[2018-03-10] MEDS: GABAPENTIN 100 MG CAPSULE PO SCH (09:52)
[2018-03-10] MEDS: FOLIC ACID 1 MG TABLET PO SCH (09:52)
[2018-03-10] MEDS: FUROSEMIDE 40 MG/4 ML VIAL IV SCH (09:53)
[2018-03-10] MEDS: ALBUMIN 25% 12.5 GM in PREMIX 1 EACH IV SCH (09:57)
[2018-03-10 11:04] VITALS: BP 124/74
== END 2018-03-10 14:30 | disposition home health service (06) | DRG 291 ==
LOC: N.ED 19:23 → N.EDINP 21:47 → N.5E 23:12
PROVIDERS: ADMIT Family Medicine; ATTEND Family Medicine

== ENCOUNTER 2018-03-19 17:42 | Inpatient (IN) ==
[2018-03-19 19:09] LABS: Basophils % 0.5 % (0.0-0.8); Eosinophils # 0.2 10*3/uL (0.0-0.87); Eosinophils % 2.2 % (0.00-10.9); Hematocrit 30.1 VOL% (42.0-52.0); Hemoglobin 9.4 GM/DL (14.0-18.0); Immature Granulocytes % 0.5 %; Immature Granulocytes Absolute 0.04 #; Lymphocytes % 13.4 % (21.2-54.2); Mean Corpuscular HGB Conc 31.2 GM/DL (32-36); Mean Corpuscular Hemoglobin 33 PG (27-34); Mean Corpuscular Volume 105.6 FL (87-102); Mean Platelet Volume 9.5 FL (9.6-12.0); Monocytes % 12.6 % (1.7-12.7); Neutrophils # 5.4 10*3/uL (1.4-7.4); Neutrophils % 70.8 % (38.7-73.9); Platelet Count 148 T/CUMM (130-400); Red Blood Count 2.85 MC/CUMM (3.8-5.5); Red Cell Distribution Width 20.9 % (9.3-17.3); White Blood Count 7.7 T/CUMM (4-12)
[2018-03-19] MEDS ORDERED: ALBUTEROL/IPRATROPIUM 3 ML NEB RESP TX STA (19:24)
[2018-03-19] MEDS ORDERED: FUROSEMIDE 40 MG/4 ML VIAL IV STA (19:24)
[2018-03-19 19:41] LABS: Alanine Aminotransferase 18 U/L (16-61); Albumin 2.8 G/DL (3.4-5.0); Alkaline Phosphatase 93 U/L (45-117); Aspartate Amino Transferase 35 U/L (0-37); Blood Urea Nitrogen 57 MG/DL (7-18); Calcium 8.5 MG/DL (8.5-10.1); Glucose 96 MG/DL (74-106); Osmolality,Calculated 283.2 MOS/KG (273-304); Potassium 5.6 MMOL/L (3.5-5.1); Sodium 134 MMOL/L (136-145)
[2018-03-19] MEDS ORDERED: ONDANSETRON 4 MG/2 ML VIAL IV PRN (19:59)
[2018-03-19] MEDS: ATORVASTATIN 20 MG TABLET PO SCH (21:48)
[2018-03-19] MEDS: AMIODARONE 200 MG TABLET PO SCH (21:48)
[2018-03-20] MEDS: ALBUTEROL/IPRATROPIUM 3 ML NEB RESP TX SCH ×4 (00:28→20:42)
[2018-03-20 09:22] LABS: Calcium 8.3 MG/DL (8.5-10.1); Potassium 5.1 MMOL/L (3.5-5.1)
[2018-03-20] MEDS: FUROSEMIDE 40 MG/4 ML VIAL IV SCH ×2 (10:13→16:56)
[2018-03-20] MEDS: PANTOPRAZOLE 40 MG TABLET PO SCH (10:14)
[2018-03-20] MEDS: AMIODARONE 200 MG TABLET PO SCH ×2 (10:14→21:29)
[2018-03-20] MEDS: ACETAMINOPHEN 325 MG TABLET PO PRN ×2 (12:33→16:56)
[2018-03-20] MEDS ORDERED: NITROGLYCERIN SL 0.4 MG TABLET SL PRN (12:59)
[2018-03-20] MEDS ORDERED: LIDOCAINE 1% 50 ML VIAL ONE (14:52)
[2018-03-20] MEDS: ASPIRIN EC 81 MG TABLET PO SCH (16:55)
[2018-03-20] MEDS: DOCUSATE SODIUM 100 MG CAPSULE PO SCH (21:28)
[2018-03-20] MEDS: CALCIUM (CARBONATE)/VITAMIN D 600 MG-400 UNIT TABLET PO SCH (21:28)
[2018-03-20] MEDS: ASCORBIC ACID 500 MG TABLET PO SCH (21:28)
[2018-03-20] MEDS: METOPROLOL TARTRATE 25 MG TABLET PO SCH (21:28)
[2018-03-20] MEDS: ATORVASTATIN 20 MG TABLET PO SCH (21:28)
[2018-03-20] MEDS: AMITRIPTYLINE 25 MG TABLET PO SCH (21:29)
[2018-03-20] MEDS: GABAPENTIN 100 MG CAPSULE PO SCH (21:29)
[2018-03-20] MEDS: FERROUS SULFATE 325 MG TABLET PO SCH (21:29)
[2018-03-21] MEDS: ALBUTEROL/IPRATROPIUM 3 ML NEB RESP TX SCH ×4 (00:10→19:31)
[2018-03-21 05:11] LABS: Basophils % 0.4 % (0.0-0.8); Eosinophils # 0.2 10*3/uL (0.0-0.87); Eosinophils % 2.3 % (0.00-10.9); Hematocrit 27.8 VOL% (42.0-52.0); Immature Granulocytes % 0.5 %; Immature Granulocytes Absolute 0.04 #; Lymphocytes # 0.9 10*3/uL (1.4-4.0); Lymphocytes % 11.9 % (21.2-54.2); Mean Corpuscular HGB Conc 32.4 GM/DL (32-36); Mean Corpuscular Hemoglobin 33 PG (27-34); Mean Corpuscular Volume 101.8 FL (87-102); Mean Platelet Volume 9.5 FL (9.6-12.0); Monocytes # 0.9 10*3/uL (0.11-0.8); Monocytes % 11.1 % (1.7-12.7); Neutrophils # 5.7 10*3/uL (1.4-7.4); Neutrophils % 73.8 % (38.7-73.9); Platelet Count 133 T/CUMM (130-400); Red Blood Count 2.73 MC/CUMM (3.8-5.5); Red Cell Distribution Width 20.6 % (9.3-17.3); White Blood Count 7.7 T/CUMM (4-12)
[2018-03-21 05:45] LABS: Calcium 8.5 MG/DL (8.5-10.1); Potassium 5.2 MMOL/L (3.5-5.1)
[2018-03-21 08:38] LABS: INR 1.1; PT Patient Result 11.8 SECS
[2018-03-21 08:46] LABS: Albumin (SPE) 2.9 G/DL (3.2-5.3); Alpha 1 (SPE) 0.3 G/DL (0.1-0.4); Alpha 1 (SPE) Rel % 4.8 %; Alpha 2 (SPE) 0.5 G/DL (0.4-1.0); Alpha 2 (SPE) Rel % 8.6 %; Beta (SPE) 0.6 G/DL (0.5-1.1); Beta (SPE) Rel % 9.5 %; Total Protein (Chem) 6.9 G/DL (6.4-8.3)
[2018-03-21 08:47] LABS: Gamma (SPE) Rel % 31.1 %
[2018-03-21 08:48] LABS: Random Urine Protein (Bench) 50 MG/DL (<11.9)
[2018-03-21] MEDS: GABAPENTIN 100 MG CAPSULE PO SCH ×2 (09:47→21:10)
[2018-03-21] MEDS: ASCORBIC ACID 500 MG TABLET PO SCH ×2 (09:47→21:10)
[2018-03-21] MEDS: MAGNESIUM OXIDE 400 MG TABLET PO SCH (09:47)
[2018-03-21] MEDS: COLCHICINE 0.6 MG TABLET PO SCH (09:47)
[2018-03-21] MEDS: METOPROLOL TARTRATE 25 MG TABLET PO SCH ×2 (09:48→21:10)
[2018-03-21] MEDS: DOCUSATE SODIUM 100 MG CAPSULE PO SCH ×2 (09:48→21:10)
[2018-03-21] MEDS: FOLIC ACID 1 MG TABLET PO SCH (09:48)
[2018-03-21] MEDS: PANTOPRAZOLE 40 MG TABLET PO SCH (09:49)
[2018-03-21] MEDS: ASPIRIN EC 81 MG TABLET PO SCH (09:49)
[2018-03-21] MEDS: FUROSEMIDE 40 MG/4 ML VIAL IV SCH ×2 (09:49→16:04)
[2018-03-21] MEDS: FERROUS SULFATE 325 MG TABLET PO SCH ×2 (09:49→21:10)
[2018-03-21] MEDS: AMIODARONE 200 MG TABLET PO SCH (09:59)
[2018-03-21] MEDS: ACETAMINOPHEN 325 MG TABLET PO PRN (10:56)
[2018-03-21] MEDS: AMITRIPTYLINE 25 MG TABLET PO SCH (21:10)
[2018-03-21] MEDS: CALCIUM (CARBONATE)/VITAMIN D 600 MG-400 UNIT TABLET PO SCH (21:10)
[2018-03-22] MEDS: ALBUTEROL/IPRATROPIUM 3 ML NEB RESP TX SCH ×4 (00:14→19:19)
[2018-03-22 06:12] LABS: Calcium 8.2 MG/DL (8.5-10.1); Potassium 5.3 MMOL/L (3.5-5.1)
[2018-03-22] MEDS: MAGNESIUM OXIDE 400 MG TABLET PO SCH (08:38)
[2018-03-22] MEDS: FERROUS SULFATE 325 MG TABLET PO SCH ×2 (08:38→21:32)
[2018-03-22] MEDS: METOPROLOL TARTRATE 25 MG TABLET PO SCH ×2 (08:38→21:31)
[2018-03-22] MEDS: PANTOPRAZOLE 40 MG TABLET PO SCH (08:38)
[2018-03-22] MEDS: GABAPENTIN 100 MG CAPSULE PO SCH ×2 (08:38→21:31)
[2018-03-22] MEDS: COLCHICINE 0.6 MG TABLET PO SCH (08:39)
[2018-03-22] MEDS: FOLIC ACID 1 MG TABLET PO SCH (08:39)
[2018-03-22] MEDS: ASPIRIN EC 81 MG TABLET PO SCH (08:40)
[2018-03-22] MEDS: FUROSEMIDE 40 MG/4 ML VIAL IV SCH ×2 (08:40→16:16)
[2018-03-22] MEDS: DOCUSATE SODIUM 100 MG CAPSULE PO SCH ×2 (08:40→21:31)
[2018-03-22] MEDS: ASCORBIC ACID 500 MG TABLET PO SCH ×2 (08:40→21:31)
[2018-03-22] MEDS: LIDOCAINE 2% TOP JELLY 5 ML TUBE TOP PRN ×2 (08:44→19:55)
[2018-03-22] MEDS ORDERED: ALBUMIN 25% 25 GM in PREMIX 1 EACH IV ONE (09:24)
[2018-03-22 09:31] LABS: Immuno Free Light Chain Kappa 16.26 MG/DL (0.33-1.94); Immuno Free Light Chain Lambda 10.64 MG/DL (0.57-2.63); Immuno Free Light Chain Ratio 1.53 MG/DL (0.26-1.65)
[2018-03-22] MEDS: ACETAMINOPHEN 325 MG TABLET PO PRN ×2 (09:45→19:40)
[2018-03-22] MEDS ORDERED: ZINC OXIDE PASTE 113 GM TUBE TOP PRN (09:46)
[2018-03-22] MEDS ORDERED: TISSUE ADHESIVE 1 EACH APPLICATOR TOP ONE (11:27)
[2018-03-22] MEDS: AMITRIPTYLINE 25 MG TABLET PO SCH (21:31)
[2018-03-22] MEDS: CALCIUM (CARBONATE)/VITAMIN D 600 MG-400 UNIT TABLET PO SCH (21:31)
[2018-03-23] MEDS: ALBUTEROL/IPRATROPIUM 3 ML NEB RESP TX SCH ×5 (00:18→19:13)
[2018-03-23 05:46] LABS: Basophils # 0.1 10*3/uL (0.0-0.2); Basophils % 0.6 % (0.0-0.8); Eosinophils # 0.3 10*3/uL (0.0-0.87); Eosinophils % 3.2 % (0.00-10.9); Hematocrit 28.2 VOL% (42.0-52.0); Hemoglobin 8.9 GM/DL (14.0-18.0); Immature Granulocytes % 0.6 %; Immature Granulocytes Absolute 0.05 #; Lymphocytes # 1.1 10*3/uL (1.4-4.0); Lymphocytes % 12.8 % (21.2-54.2); Mean Corpuscular HGB Conc 31.6 GM/DL (32-36); Mean Corpuscular Hemoglobin 33 PG (27-34); Mean Corpuscular Volume 105.2 FL (87-102); Mean Platelet Volume 9.5 FL (9.6-12.0); Monocytes # 1.1 10*3/uL (0.11-0.8); Monocytes % 12.8 % (1.7-12.7); Neutrophils # 6.2 10*3/uL (1.4-7.4); Platelet Count 118 T/CUMM (130-400); Red Blood Count 2.68 MC/CUMM (3.8-5.5); Red Cell Distribution Width 20.2 % (9.3-17.3); White Blood Count 8.8 T/CUMM (4-12)
[2018-03-23 06:16] LABS: Calcium 8.3 MG/DL (8.5-10.1); Potassium 5.1 MMOL/L (3.5-5.1)
[2018-03-23] MEDS: DOCUSATE SODIUM 100 MG CAPSULE PO SCH ×2 (09:24→21:53)
[2018-03-23] MEDS: ASPIRIN EC 81 MG TABLET PO SCH (09:24)
[2018-03-23] MEDS: FOLIC ACID 1 MG TABLET PO SCH (09:25)
[2018-03-23] MEDS: METOPROLOL TARTRATE 25 MG TABLET PO SCH ×2 (09:25→21:54)
[2018-03-23] MEDS: COLCHICINE 0.6 MG TABLET PO SCH (09:25)
[2018-03-23] MEDS: FERROUS SULFATE 325 MG TABLET PO SCH ×2 (09:25→21:54)
[2018-03-23] MEDS: MAGNESIUM OXIDE 400 MG TABLET PO SCH (09:25)
[2018-03-23] MEDS: GABAPENTIN 100 MG CAPSULE PO SCH ×2 (09:25→21:54)
[2018-03-23] MEDS: PANTOPRAZOLE 40 MG TABLET PO SCH (09:25)
[2018-03-23] MEDS: ASCORBIC ACID 500 MG TABLET PO SCH ×2 (09:25→21:53)
[2018-03-23] MEDS: FUROSEMIDE 40 MG/4 ML VIAL IV SCH ×2 (09:29→17:25)
[2018-03-23] MEDS: SILDENAFIL 20 MG TABLET PO SCH ×2 (11:29→21:54)
[2018-03-23] MEDS: ACETAMINOPHEN 325 MG TABLET PO PRN ×2 (12:59→21:54)
[2018-03-23] MEDS: LIDOCAINE 2% TOP JELLY 5 ML TUBE TOP PRN ×2 (13:00→21:57)
[2018-03-23] MEDS: AMITRIPTYLINE 25 MG TABLET PO SCH (21:54)
[2018-03-23] MEDS: CALCIUM (CARBONATE)/VITAMIN D 600 MG-400 UNIT TABLET PO SCH (21:54)
[2018-03-24] MEDS: ALBUTEROL/IPRATROPIUM 3 ML NEB RESP TX SCH ×4 (00:17→19:53)
[2018-03-24 06:07] LABS: Potassium 4.2 MMOL/L (3.5-5.1)
[2018-03-24] MEDS: GABAPENTIN 100 MG CAPSULE PO SCH ×2 (10:27→21:35)
[2018-03-24] MEDS: SILDENAFIL 20 MG TABLET PO SCH ×2 (10:27→21:35)
[2018-03-24] MEDS: ASPIRIN EC 81 MG TABLET PO SCH (10:27)
[2018-03-24] MEDS: MAGNESIUM OXIDE 400 MG TABLET PO SCH (10:27)
[2018-03-24] MEDS: PANTOPRAZOLE 40 MG TABLET PO SCH (10:27)
[2018-03-24] MEDS: FERROUS SULFATE 325 MG TABLET PO SCH ×2 (10:27→21:36)
[2018-03-24] MEDS: METOPROLOL TARTRATE 25 MG TABLET PO SCH ×2 (10:27→21:36)
[2018-03-24] MEDS: FOLIC ACID 1 MG TABLET PO SCH (10:27)
[2018-03-24] MEDS: LIDOCAINE 2% TOP JELLY 5 ML TUBE TOP PRN ×2 (10:27→21:40)
[2018-03-24] MEDS: ACETAMINOPHEN 325 MG TABLET PO PRN ×2 (10:27→21:35)
[2018-03-24] MEDS: DOCUSATE SODIUM 100 MG CAPSULE PO SCH ×2 (10:27→21:36)
[2018-03-24] MEDS: ASCORBIC ACID 500 MG TABLET PO SCH ×2 (10:27→21:36)
[2018-03-24] MEDS: COLCHICINE 0.6 MG TABLET PO SCH (10:27)
[2018-03-24] MEDS: FUROSEMIDE 40 MG/4 ML VIAL IV SCH ×2 (13:44→23:32)
[2018-03-24] MEDS: CALCIUM (CARBONATE)/VITAMIN D 600 MG-400 UNIT TABLET PO SCH (21:36)
[2018-03-24] MEDS: AMITRIPTYLINE 25 MG TABLET PO SCH (21:36)
[2018-03-25] MEDS: ALBUTEROL/IPRATROPIUM 3 ML NEB RESP TX SCH ×3 (00:44→13:15)
[2018-03-25 06:10] LABS: Basophils % 0.4 % (0.0-0.8); Eosinophils # 0.2 10*3/uL (0.0-0.87); Eosinophils % 3.3 % (0.00-10.9); Hematocrit 27.1 VOL% (42.0-52.0); Hemoglobin 8.5 GM/DL (14.0-18.0); Immature Granulocytes % 0.4 %; Immature Granulocytes Absolute 0.03 #; Lymphocytes % 14.3 % (21.2-54.2); Mean Corpuscular HGB Conc 31.4 GM/DL (32-36); Mean Corpuscular Hemoglobin 33 PG (27-34); Mean Corpuscular Volume 104.2 FL (87-102); Mean Platelet Volume 9.5 FL (9.6-12.0); Monocytes # 0.7 10*3/uL (0.11-0.8); Monocytes % 10.9 % (1.7-12.7); Neutrophils # 4.8 10*3/uL (1.4-7.4); Neutrophils % 70.7 % (38.7-73.9); Platelet Count 116 T/CUMM (130-400); Red Cell Distribution Width 19.7 % (9.3-17.3); White Blood Count 6.7 T/CUMM (4-12)
[2018-03-25 06:24] LABS: Albumin 2.2 G/DL (3.4-5.0); Bilirubin,Total 0.9 MG/DL (0.2-1.0); Calcium 8.3 MG/DL (8.5-10.1); Potassium 3.9 MMOL/L (3.5-5.1); Total Protein 6.5 G/DL (6.4-8.3)
[2018-03-25] MEDS: FUROSEMIDE 40 MG/4 ML VIAL IV SCH (09:13)
[2018-03-25] MEDS: COLCHICINE 0.6 MG TABLET PO SCH (09:18)
[2018-03-25] MEDS: GABAPENTIN 100 MG CAPSULE PO SCH (09:18)
[2018-03-25] MEDS: METOPROLOL TARTRATE 25 MG TABLET PO SCH (09:18)
[2018-03-25] MEDS: MAGNESIUM OXIDE 400 MG TABLET PO SCH (09:18)
[2018-03-25] MEDS: ASCORBIC ACID 500 MG TABLET PO SCH (09:19)
[2018-03-25] MEDS: ASPIRIN EC 81 MG TABLET PO SCH (09:19)
[2018-03-25] MEDS: SILDENAFIL 20 MG TABLET PO SCH (09:19)
[2018-03-25] MEDS: PANTOPRAZOLE 40 MG TABLET PO SCH (09:19)
[2018-03-25] MEDS: FOLIC ACID 1 MG TABLET PO SCH (09:19)
[2018-03-25] MEDS: DOCUSATE SODIUM 100 MG CAPSULE PO SCH (09:19)
[2018-03-25] MEDS: LIDOCAINE 2% TOP JELLY 5 ML TUBE TOP PRN (09:28)
[2018-03-25] MEDS: FERROUS SULFATE 325 MG TABLET PO SCH (09:29)
[2018-03-25] MEDS: ACETAMINOPHEN 325 MG TABLET PO PRN (09:31)
[2018-03-25 12:31] VITALS: BP 122/66
== END 2018-03-25 14:20 | DRG 291 ==
LOC: N.ED 17:42 → N.EDINP 19:58 → N.TELES 21:09
PROVIDERS: ADMIT Family Medicine; ATTEND Family Medicine

== ENCOUNTER 2018-04-26 15:15 | Inpatient (IN) ==
[2018-05-06 17:02] VITALS: BP 99/54
== END 2018-05-06 16:40 | disposition home health service (06) | DRG 314 ==
LOC: N.2W → N.TELEN 17:25
PROVIDERS: ADMIT Family Medicine; ATTEND Family Medicine